=== PATIENT | female | born 1950 | race Caucasian/White ===

== ENCOUNTER → 2017-08-25 | Outpatient (CLI) | payer MEDICARE, OTHER | END | disposition home or self-care (01) | LOC: LAB 07:35 → LAB SHORT 07:35 | DX: R30.0 Dysuria (principal) | CPT/HCPCS: 87086 ==

== ENCOUNTER 2017-10-18 13:12 | Day surgery (SDC) | payer MEDICARE, OTHER | END 2017-10-18 22:38 | disposition home or self-care (01) | LOC: CT 13:12 | PROVIDERS: Radiology Diagnostic Radiology | PROC: 0FB03ZX Excision of Liver, Percutaneous Approach, Diagnostic (ICD-10-PCS; principal; 2017-10-18 15:00) | DX: C78.7 Secondary malignant neoplasm of liver and intrahepatic bile duct (principal); C80.0 Disseminated malignant neoplasm, unspecified | CPT/HCPCS: 47000; 77012 ==

== ENCOUNTER 2017-10-26 10:38 | Day surgery (SDC) | payer MEDICARE, OTHER ==
[~2017-10-26] VITALS: Ht 162.6 cm; Wt 46.0 kg
[2017-10-26] MEDS ORDERED: ZESTORETIC 20-121 EA PO (11:22)
[2017-10-26] MEDS ORDERED: LEVSOD50 PO (11:22)
[2017-10-26] MEDS ORDERED: ONDA4 PO (11:23)
[2017-10-26] MEDS ORDERED: OXYC5 PO (11:23)
[2017-10-26] MEDS ORDERED: MIRALAX17 GM (11:23)
[2017-10-26] MEDS ORDERED: DOCU100 PO (11:24)
== END 2017-10-26 14:26 | disposition home or self-care (01) ==
LOC: ORSCSDS 10:38
PROVIDERS: Surgery
PROC: 05HM33Z Insertion of Infusion Device into Right Internal Jugular Vein, Percutaneous Approach (ICD-10-PCS; principal; 2017-10-26 12:00)
DX: C25.2 Malignant neoplasm of tail of pancreas (principal); I87.8 Other specified disorders of veins; E03.9 Hypothyroidism, unspecified; K21.9 Gastro-esophageal reflux disease without esophagitis; Z79.899 Other long term (current) drug therapy
CPT/HCPCS: 77001; C1788; J0690; J1100; J1642; J2250; J2405; J7120

== ENCOUNTER 2017-10-29 00:21 | Day surgery (SDC) | payer MEDICARE, OTHER ==
[~2017-10-29 00:21] MED LIST: DOCU100 PO; LEVSOD50 PO; MIRALAX17 GM; ONDA4 PO; OXYC5 PO; ZESTORETIC 20-121 EA PO
== END 2017-10-29 16:48 | disposition home or self-care (01) ==
LOC: ATC 00:21
DX: Z45.1 Encounter for adjustment and management of infusion pump (principal); C25.2 Malignant neoplasm of tail of pancreas; C78.7 Secondary malignant neoplasm of liver and intrahepatic bile duct; C78.6 Secondary malignant neoplasm of retroperitoneum and peritoneum; Z79.899 Other long term (current) drug therapy
CPT/HCPCS: 96360; J1642; J7030

== ENCOUNTER → 2018-10-10 | Outpatient (CLI) | payer MEDICARE, OTHER ==
[2018-10-10 14:21] LABS: BASOPHILS ABSOLUTE AUTO 0.01 K/mm3 (0.00-0.23); BASOPHILS PERCENT AUTO 0 % (0-2); EOSINOPHILS PERCENT AUTO 0 % (0-6); Hematocrit 30.2 % (33.0-51.0); Hemoglobin 9.8 g/dL (11.5-16.0); IMMATURE GRAN ABSOLUTE AUTO 0.04 K/mm3 (0.00-0.10); IMMATURE GRAN PERCENT AUTO 1 % (0-1); LYMPHOCYTES ABSOLUTE AUTO 0.99 K/mm3 (0.84-5.20); LYMPHOCYTES PERCENT AUTO 18 % (21-46); MONOCYTES PERCENT AUTO 2 % (4-13); Mean Corpuscular HGB 32.6 pg (26.0-34.0); Mean Corpuscular HGB Conc 32.5 g/dL (31.5-36.5); Mean Platelet Volume 11.8 fL (9.1-12.4); NEUTROPHILS ABSOLUTE AUTO 4.29 K/mm3 (1.96-9.15); NEUTROPHILS PERCENT AUTO 79 % (41-73); RDW Standard Deviation 62.1 fL (35.1-46.3); Red Blood Cell Count 3.01 M/mm3 (3.80-5.20); White Blood Cell Count 5.43 K/mm3 (4.00-11.30)
[2018-10-10 14:29] LABS: Mean Corpuscular Volume 100 fL (80-100)
[2018-10-10 14:30] LABS: Platelet Count 43 K/mm3 (150-400)
[2018-10-10 14:46] LABS: Alanine Aminotransfer (ALT/SGP 27 U/L (12-78); Albumin, Blood 2.3 g/dL (3.4-5.0); Albumin/Globulin Ratio 0.9 (0.8-1.8); Alk Phos 306 U/L (50-136); Anion Gap 6 mmol/L (6-16); Aspartate Aminotrans (AST/SGOT 31 U/L (12-37); Bilirubin, Total 0.8 mg/dL (0.1-1.0); Blood Urea Nitrogen 12 mg/dL (8-24); Bun/Creatinine Ratio 23.3 (12.0-20.0); CO2, Blood 27 mmol/L (21-32); Calcium, Blood 8.2 mg/dL (8.5-10.1); Chloride, Blood 103 mmol/L (98-108); Creatinine, Blood 0.52 mg/dL (0.40-1.00); Globulin, Blood 2.6 g/dL (2.2-4.0); Glomerular Filtration Rate >60 (60-); Glucose, Blood 92 mg/dL (70-99); Potassium, Blood 3.5 mmol/L (3.5-5.5); Sodium, Blood 136 mmol/L (136-145); Total Protein, Blood 4.9 g/dL (6.4-8.2)
== END | disposition home or self-care (01) ==
LOC: LAB SHORT 13:56 → LAB 13:56
PROVIDERS: Internal Medicine Hematology & Oncology
DX: C25.2 Malignant neoplasm of tail of pancreas (principal)
CPT/HCPCS: 80053; 85025